=== PATIENT | male | born 1965 | race Caucasian/White ===

== ENCOUNTER 2024-10-10 12:15 | Observation (INO) | payer BC ==
[2024-10-10] MEDS ORDERED: Sodium Chloride 0.9% 1000 ML 1,000 ML ONE (12:50)
[2024-10-10] MEDS: Sodium Chloride 0.9% 1000 ML 1,000 ML IV STA (12:50)
[2024-10-10 12:53] LABS: Absolute Neutrophil Ct (ANC) 8.33 x10^3/uL (1.78-5.38); BASOPHIL % 0.2 % (0.2-1.2); Basophil (Absolute #) 0.02 x10^3/uL (0.01-0.08); Eosinophil % 0.2 % (0.8-7.0); Eosinophil (Absolute #) 0.02 x10^3/uL (0.04-0.54); Hemoglobin 14.9 g/dL (13.7-17.5); IMMATURE GRAN # 0.05 x10^3u/L (0.001-0.031); IMMATURE GRAN % 0.5 % (0.001-0.429); Lymphocyte (Absolute #) 1.45 x10^3/uL (1.32-3.57); Lymphocytes % 13.7 % (21.8-53.1); Mean Cell Volume 92.1 fL (79.0-92.2); Mean Corpuscular Hemoglobin 32.7 pg (25.7-32.2); Mean Corpuscular Hgb Concent. 35.5 g/dL (32.3-36.5); Mean Platelet Volume 11.2 fL (9.4-12.4); Monocyte (Absolute #) 0.72 x10^3/uL (0.30-0.82); Monocytes % 6.8 % (5.3-12.2); Neutrophil % 78.6 % (34.0-67.9); Platelet Count 282 x10^3/uL (163-337); Red Blood Count 4.56 x10^6/uL (4.63-6.08); Red Cell Distribution Width 12.5 % (11.6-14.4); White Blood Count 10.6 x10^3/uL (4.23-9.07)
[2024-10-10 12:59] LABS: ALBUMIN 4.9 g/dL (3.5-5.0); ANION GAP 20.4 MEQ/L (5-15); BILIRUBIN,TOTAL 1.4 mg/dL (0.2-1.3); Calcium 9.4 mg/dL (8.4-10.2); Creatinine 1 0.68 mg/dL (0.66-1.25); EST GLOMERULAR FILTRATION RATE 107.7 ML/MIN; Potassium 4.8 mmol/L (3.5-5.1); Total Protein 7.4 g/dL (6.3-8.2)
--- NOTE | 2024-10-10 13:13 | XRAY ---
Indication: Atrial fibrillation. Comparison: None Portable chest inflated and clear. Heart borderline enlarged. Bony thorax intact with osteopenia and mild degenerative changes. No acute findings.
[2024-10-10 13:17] LABS: MAGNESIUM 1.7 mg/dL (1.6-2.3)
[2024-10-10] MEDS ORDERED: Cardizem IV 50 MG/10 ML IV ONE (13:34)
[2024-10-10] MEDS: Cardizem IV 50 MG/10 ML IV ONE (13:37)
[2024-10-10] MEDS: CARDIZEM DRIP 100 MG/100 ML D5W 100 ML IV PRN (13:39)
--- NOTE | 2024-10-10 14:36 | ERPHSYRPT ---
- History of Present Illness Time Seen by Provider: 10/10/24 12:16 Historian: patient, family Exam Limitations: no limitations Patient Subjective Stated Complaint: PT. STATES, "A COUPLE OF WEEKS AGO I WAS HAVING PAIN IN MY DIAPHRAGM AND IT MOVED FROM SIDE TO SIDE. NOW THE PAIN HAS SETTLED INTO MY RT. LOWER QUADRANT. I VOMITED X1 AND HAVE HAD SOME LOOSER STOOLS TODAY." Triage Nursing Assessment: PT. AMBULATES TO ROOM WITHOUT DIFFICULTY, A&OX3, RESP. EVEN UNLABORED, NO EDEMA, ABLE TO MOVE ALL 4 EXT. Physician History: 58 years old male with history of hypertension, coronary artery disease with multiple stenting presented in the ER with complaints of upper abdominal pain for the last 3 weeks off and on and worsening for 1 week and now more on the right side with associated nausea and 1 episode of nonprojectile, nonbilious vomiting without hematemesis. Patient reports having loose stool but no lakeisha diarrhea hematochezia or melena. Pain is moderate intensity dull aching with no significant aggravating or relieving factors. Patient also reports having moments of fluttering sensations in the chest but no pain or shortness of breath. Patient is in A-fib RVR with heart rate in 130s on presentation with no previous history of atrial fibrillation. Reports feeling weak fatigued and dehydrated. Allergies/Adverse Reactions: No Known Drug Allergies Allergy (Verified 10/10/24 13:36) Home Medications: Aspirin EC 81 mg [Ecotrin 81 mg] 81 mg PO DAILY 10/10/24 [History] Atorvastatin Calcium 80 mg PO DAILY 10/10/24 [History] Carvedilol 3.125 mg [Coreg 3.125 MG] 3.125 mg PO BID 10/10/24 [History] Losartan Potassium [Cozaar] 25 mg PO DAILY 10/10/24 [History] Hx Tetanus, Diphtheria Vaccination/Date Given: Yes Hx Influenza Vaccination/Date Given: No Hx Pneumococcal Vaccination/Date Given: Yes Immunizations Up to Date: Yes Travel Risk - International Travel Have you traveled outside of the country in past 3 weeks: No - Emerging Infectious Disease Are you exhibiting symptoms associated with any current EIDs: No - Review of Systems Constitutional: Fatigue Eyes: No Symptoms Ears, Nose, & Throat: No Symptoms Respiratory: No Symptoms Cardiac: Palpitations Abdominal/Gastrointestinal: Abdominal Pain, Nausea, Vomiting Genitourinary Symptoms: No Symptoms Musculoskeletal: No Symptoms Skin: No Symptoms Neurological: No Symptoms Psychological: No Symptoms Hematologic/Lymphatic: No Symptoms Immunological/Allergic: No Symptoms - Past Medical History Pertinent Past Medical History: Yes Neurological History: No Pertinent History ENT History: No Pertinent History Cardiac History: Coronary Artery Disease, Hypertension, Myocardial Infarction ([place]) Respiratory History: No Pertinent History Endocrine Medical History: No Pertinent History Musculoskeletal History: No Pertinent History GI Medical History: No Pertinent History History: No Pertinent History Psycho-Social History: No Pertinent History Male Reproductive Disorders: No Pertinent History - Past Surgical History Past Surgical History: Yes Other Surgical History: HEART CATH IN 10 YEARS AGO WITH 4 STENTS (2 IN LAD AND 2 RACA) - Social History Smoking Status: Former smoker Exposure to second hand smoke: Yes Drug Use: none - Social Determinants of Health Will the patient participate in the screening: Declined to provide - Nursing Vital Signs Nursing Vital Signs: Initial Vital Signs Temperature 97.6 F 10/10/24 12:16 Pulse Rate 163 H 10/10/24 12:16 Respiratory Rate 21 10/10/24 12:16 Blood Pressure 165/125 10/10/24 12:16 O2 Sat by Pulse Oximetry 99 10/10/24 12:16 Pain Scale Pain Intensity 5 - Physical Exam General Appearance: no apparent distress, alert Eye Exam: PERRL/EOMI Ears, Nose, Throat Exam: normal ENT inspection Neck Exam: normal inspection, non-tender, supple, full range of motion Respiratory Exam: normal breath sounds, lungs clear Cardiovascular Exam: tachycardia, irregular Gastrointestinal/Abdomen Exam: soft, normal bowel sounds, tenderness (Right upper quadrant and flank) Back Exam: normal inspection, normal range of motion Extremity Exam: normal inspection, normal range of motion Neurologic Exam: alert, oriented x 3, cooperative, 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-XII nml as tested, sensation nml, No motor deficits Skin Exam: normal color SpO2 Interpretation: normal SpO2: 94 O2 Delivery: Room Air - Course EKG Interpreted by Me: RATE (130), A-fib, NORMAL AXIS, prolonged QT interval, Non-specific ST Changes Ordered Tests: Active Orders 24 hr Category Date Time Status EKG-ER Only STAT Care 10/10/24 12:45 Active IV Insertion STAT Care 10/10/24 12:45 Active NPO (ED) STAT Care 10/10/24 12:45 Active ABDOMEN AND PELVIS W/0 CONTRAS [CT] Stat Exams 10/10/24 12:46 Completed CHEST 1 VIEW (PORTABLE) Stat Exams 10/10/24 12:46 Completed CBC W DIFF Stat Lab 10/10/24 12:35 Completed CMP Stat Lab 10/10/24 12:35 Completed LIPASE Stat Lab 10/10/24 12:35 Completed Lactic Acid Stat Lab 10/10/24 12:45 Completed MAGNESIUM Stat Lab 10/10/24 12:35 Completed NT PRO BNPII Stat Lab 10/10/24 12:35 Completed TROPONIN Q4H Lab 10/10/24 12:35 Completed TROPONIN Q4H Lab 10/10/24 15:45 Received TROPONIN Q4H Lab 10/10/24 21:00 Ordered UA W/RFX UR CULTURE Stat Lab 10/10/24 12:46 Ordered Transfer Order Routine Transfer 10/10/24 Ordered Medication Summary Generic Name Dose Route Start Last Admin Trade Name Freq PRN Reason Stop Dose Admin Diltiazem HCl 100 mls @ 5 mls/hr 10/10/24 13:33 10/10/24 15:06 Cardizem Drip 100 Mg/100 Ml D5w IV 11/09/24 13:32 20 mg/hr .Q20H PRN 20 mls/hr HEART RATE/ A-FIB Titration Protocol 5 MG/HR Discontinued Medications Generic Name Dose Route Start Last Admin Trade Name Freq PRN Reason Stop Dose Admin Diltiazem HCl 15 mg 10/10/24 13:34 10/10/24 13:37 Diltiazem Hcl Iv 5 Mg/Ml Vial IV 10/10/24 13:35 15 mg STAT ONE Administration Diltiazem HCl Confirm 10/10/24 13:34 Diltiazem Hcl Iv 5 Mg/Ml Vial Administered 10/10/24 13:35 Dose 50 mg IV .STK-MED ONE Sodium Chloride 1,000 mls @ 999 mls/hr 10/10/24 12:45 10/10/24 14:07 Sodium Chloride 0.9% 1000 Ml IV 10/10/24 13:45 Infused .Q1H1M STA Infusion Sodium Chloride Confirm 10/10/24 12:50 Sodium Chloride 0.9% 1000 Ml Administered 10/10/24 12:51 Dose 1,000 mls @ ud .ROUTE .STK-MED ONE Lab/Rad Data: Laboratory Result Diagrams 10/10/24 12:35 10/10/24 12:35 Laboratory Results 10/10/24 10/10/24 10/10/24 Range/Units 12:45 12:35 12:35 WBC (4.23-9.07) x10^3/uL RBC (4.63-6.08) x10^6/uL Hgb (13.7-17.5) g/dL Hct (40.1-51.0) % MCV (79.0-92.2) fL MCH (25.7-32.2) pg MCHC (32.3-36.5) g/dL RDW (11.6-14.4) % Plt Count (163-337) x10^3/uL MPV (9.4-12.4) fL Gran % (34.0-67.9) % Immature Gran % (Auto) (0.001-0.429) % Nucleat RBC Rel Count (0.00-0.2) % Eos # (Auto) (0.04-0.54) x10^3/uL Immature Gran # (Auto) (0.001-0.031) x10^3u/L Absolute Lymphs (auto) (1.32-3.57) x10^3/uL Absolute Monos (auto) (0.30-0.82) x10^3/uL Absolute Nucleated RBC (0.00-0.012) x10^3u/L Lymphocytes % (21.8-53.1) % Monocytes % (5.3-12.2) % Eosinophils % (0.8-7.0) % Basophils % (0.2-1.2) % Absolute Granulocytes (1.78-5.38) x10^3/uL Basophils # (0.01-0.08) x10^3/uL Sodium 134 L (135-145) mmol/L Potassium 4.8 (3.5-5.1) mmol/L Chloride 98 (98-107) mmol/L Carbon Dioxide 20 L (22-30) mmol/L Anion Gap 20.4 H (5-15) MEQ/L BUN 12 (9-20) mg/dL Creatinine 0.68 (0.66-1.25) mg/dL Estimated GFR 107.7 ML/MIN Glucose 151 H (74-106) mg/dL Lactic Acid 1.8 (0.4-2.0) Calcium 9.4 (8.4-10.2) mg/dL Magnesium 1.7 (1.6-2.3) mg/dL Total Bilirubin 1.40 H (0.2-1.3) mg/dL AST 37 (17-59) U/L ALT 46 (0-50) U/L Alkaline Phosphatase 88 (38-126) U/L Troponin I < 0.012 (0.000-0.033) ng/mL NT-Pro-B Natriuret Pep 1450 (<300) pg/mL Serum Total Protein 7.4 (6.3-8.2) g/dL Albumin 4.9 (3.5-5.0) g/dL Lipase 55 (23-300) U/L 10/10/24 Range/Units 12:35 WBC 10.6 H (4.23-9.07) x10^3/uL RBC 4.56 L (4.63-6.08) x10^6/uL Hgb 14.9 (13.7-17.5) g/dL Hct 42.0 (40.1-51.0) % MCV 92.1 (79.0-92.2) fL MCH 32.7 H (25.7-32.2) pg MCHC 35.5 (32.3-36.5) g/dL RDW 12.5 (11.6-14.4) % Plt Count 282 (163-337) x10^3/uL MPV 11.2 (9.4-12.4) fL Gran % 78.6 H (34.0-67.9) % Immature Gran % (Auto) 0.5 H (0.001-0.429) % Nucleat RBC Rel Count 0.0 (0.00-0.2) % Eos # (Auto) 0.02 L (0.04-0.54) x10^3/uL Immature Gran # (Auto) 0.05 H (0.001-0.031) x10^3u/L Absolute Lymphs (auto) 1.45 (1.32-3.57) x10^3/uL Absolute Monos (auto) 0.72 (0.30-0.82) x10^3/uL Absolute Nucleated RBC 0.00 (0.00-0.012) x10^3u/L Lymphocytes % 13.7 L (21.8-53.1) % Monocytes % 6.8 (5.3-12.2) % Eosinophils % 0.2 L (0.8-7.0) % Basophils % 0.2 (0.2-1.2) % Absolute Granulocytes 8.33 H (1.78-5.38) x10^3/uL Basophils # 0.02 (0.01-0.08) x10^3/uL Sodium (135-145) mmol/L Potassium (3.5-5.1) mmol/L Chloride (98-107) mmol/L Carbon Dioxide (22-30) mmol/L Anion Gap (5-15) MEQ/L BUN (9-20) mg/dL Creatinine (0.66-1.25) mg/dL Estimated GFR ML/MIN Glucose (74-106) mg/dL Lactic Acid (0.4-2.0) Calcium (8.4-10.2) mg/dL Magnesium (1.6-2.3) mg/dL Total Bilirubin (0.2-1.3) mg/dL AST (17-59) U/L ALT (0-50) U/L Alkaline Phosphatase (38-126) U/L Troponin I (0.000-0.033) ng/mL NT-Pro-B Natriuret Pep (<300) pg/mL Serum Total Protein (6.3-8.2) g/dL Albumin (3.5-5.0) g/dL Lipase (23-300) U/L - Progress Progress: improved, re-examined Progress Note: 10/10/24 15:31 58 years old is evaluated in the ER for abdominal pain with nausea and loose stool. Patient was in A-fib RVR on presentation in the ER. No previous history of A- fib. He is given fluid bolus with no improvement in the heart rate and started on Cardizem IV bolus followed by drip. Has improvement in the heart rate in 80s but still in A-fib. Patient has new onset A-fib. Chest x-ray is negative for any acute cardiopulmonary findings interpreted by me followed by official read. White count of 10, chemistries fairly unremarkable except for some element of dehydration. No acute UTI. CT abdomen pelvis without contrast is negative for any acute intra-abdominal pelvic findings. I believe patient needs to be admitted for A-fib RVR and switching from IV to oral meds and anticoagulation. Discussed with Dr. Jacome, reviewed history, workup and agreed with admission. Shared the results of workup with patient and family and plan of admission which they understand and agree. Complexity of problems addressed: High acuity Complexity of data reviewed/analyzed: Extensive Risk of complication: Moderate to high risk Discussed with : Teresa Will see patient in: hospital (observation) Counseled pt/family regarding: lab results, diagnosis, rad results Medical Desision Making - Independent Historian Additional History obtained from: Spouse - Discussion of managment Care discussed with:: hospitalist Reviewed:: Test results Agreed on:: Treatment plan, place in obs Will see patient: in hospital - Diagnostic Testing Diagnostic test were ordered, analyzed, and reviewed by me: Yes Radiological Interpretation: Interpreted by me, Reviewed by me - Risk of complications The pt has a mod risk of morbidity or mortality based on: Need for prescription drug management The pt has a high risk of morbidity or mortality based on: Drug therapy requiring intensive monitoring for toxicity, Decision regarding hospitilization or escalation of hosp level of care - Departure Departure Disposition: Observation Clinical Impression: Atrial fibrillation with RVR, Abdominal pain Condition: Stable Critical Care Time: Yes Critical Care Time(excluding separately billable procedures): Critical 30-74 mins Referrals: DOCTOR,NO FAMILY [Primary Care Provider, UNKNOWN] - Follow up/PCP as directed
--- NOTE | 2024-10-10 14:51 | XRAY ---
Indication: Right abdomen pain. Multiple contiguous axial images obtained through the abdomen and pelvis without contrast. Comparison: None Lung bases demonstrates minimal bilateral dependent atelectasis. No infiltrate or effusion. Heart borderline enlarged. Noncontrasted stomach and bowel loops appear nonobstructed with normal appendix. Left upper kidney demonstrates cortical thinning/scarring. No free fluid/air. Remaining liver, gallbladder, pancreas, spleen, adrenal glands, kidneys, ureters, and bladder are unremarkable for noncontrast exam. Mild scattered aortoiliac calcifications without AAA. Osseous structures intact with minimal/mild degenerative changes throughout thoracolumbar spine and mild degenerative changes both hips. No ventral or inguinal hernias. Impression: Chronic findings including borderline cardiomegaly, left renal cortical thinning/scarring, arteriosclerotic disease, and chronic bony findings. No acute findings on this noncontrast exam.
--- NOTE | 2024-10-10 17:11 | PCM.HP ---
History of Present Illness - Chief Complaint Chief Complaint: A-fib RVR Date: 10/10/24 History of Present Illness: is a 58-year-old male with a history of hypertension and coronary artery disease with multiple stents presented to the emergency department with complaints of upper abdominal pain that has been intermittent over the past three weeks and worsening over the last week, now more localized to the right side. The pain is described as dull and aching, of moderate intensity, with no clear aggravating or relieving factors. He also reported associated nausea and one episode of non-projectile, non-bilious vomiting without hematemesis. Additionally, the patient noted having loose stools but denied lakeisha diarrhea, hematochezia, or melena. He mentioned experiencing intermittent fluttering sensations in the chest but denied chest pain or shortness of breath. On presentation, the patient was found to be in atrial fibrillation with rapid ventricular response (RVR), with a heart rate in the 130s and no prior history of atrial fibrillation. He reported feeling weak, fatigued, and dehydrated. Initial evaluation revealed a WBC count of 10.6, an anion gap of 20.4, and a total bilirubin of 1.40. Chest X-ray showed a borderline enlarged heart, while CT of the abdomen and pelvis did not reveal any acute findings. In the ER, the patient was given a 1-liter normal saline fluid bolus, and Cardizem was administered both as an IV push and infusion. He remained in atrial fibrillation with a heart rate of 110 but maintained stable blood pressure. The patient was subsequently admitted to an ICU bed for further monitoring and management. - Review of Systems Constitutional: No Fever, No Chills Eyes: No Symptoms Ears, Nose, & Throat: No Symptoms Respiratory: No Cough, No Short Of Breath Cardiac: Palpitations, No Chest Pain, No Edema, No Syncope Abdominal/Gastrointestinal: Abdominal Pain, No Nausea, No Vomiting, No Diarrhea Genitourinary Symptoms: No Dysuria Musculoskeletal: No Back Pain, No Neck Pain Skin: No Rash Neurological: No Dizziness, No Focal Weakness, No Sensory Changes Psychological: No Symptoms Endocrine: No Symptoms Hematologic/Lymphatic: No Symptoms Immunological/Allergic: No Symptoms Medications & Allergies Home Medications: Home Medication List Aspirin EC 81 mg [Ecotrin 81 mg] 81 mg PO DAILY 10/10/24 [History Confirmed 10/10/24] Atorvastatin Calcium 80 mg PO DAILY 10/10/24 [History Confirmed 10/10/24] Carvedilol 3.125 mg [Coreg 3.125 MG] 3.125 mg PO BID 10/10/24 [History Confirmed 10/10/24] Losartan Potassium [Cozaar] 25 mg PO DAILY 10/10/24 [History Confirmed 10/10/24] Allergies/Adverse Reactions: Allergies Allergy/AdvReac Type Severity Reaction Status Date / Time No Known Drug Allergies Allergy Verified 10/10/24 13:36 - Past Medical History Past Medical History: Yes Neurological History: No Pertinent History ENT History: No Pertinent History Cardiac History: Coronary Artery Disease, Hypertension, Myocardial Infarction (RI) Respiratory History: No Pertinent History Endocrine Medical History: No Pertinent History Musculoskelatal History: No Pertinent History GI Medical History: No Pertinent History History: No Pertinent History Pyscho-Social History: No Pertinent History Male Reproductive Disorders: No Pertinent History - Past Surgical History Past Surgical History: Yes Other Surgical History: HEART CATH IN 10 YEARS AGO WITH 4 STENTS (2 IN LAD AND 2 RACA) Significant Family History: no pertinent family hx - Social History Smoking Status: Former smoker Exposure to second hand smoke: Yes Alcohol: Daily Drug Use: none - Social Determinants of Health Will the patient participate in the screening: Declined to provide - Physical Exam Vital Signs: Vital Signs - 24 hr Temp Pulse Pulse Resp BP BP Pulse Ox 10/10/24 16:15 70 17 143/85 98 10/10/24 16:00 66 25 H 136/83 98 10/10/24 15:54 94 L 10/10/24 15:47 68 25 H 134/90 98 10/10/24 15:30 78 26 H 136/95 99 10/10/24 15:15 87 25 H 143/85 97 10/10/24 15:06 110 H 16 140/84 10/10/24 15:00 85 28 H 146/113 98 10/10/24 14:45 85 28 H 143/107 97 10/10/24 14:38 92 H 16 147/102 10/10/24 14:36 98 H 26 H 147/102 94 L 10/10/24 14:30 92 H 27 H 164/106 91 L 10/10/24 14:15 102 H 28 H 151/95 92 L 10/10/24 14:00 97 H 25 H 158/89 94 L 10/10/24 13:44 101 H 18 142/117 96 10/10/24 13:39 127 H 16 142/117 10/10/24 13:32 120 H 27 H 167/128 97 10/10/24 13:15 176/129 10/10/24 13:00 135 H 15 155/126 98 10/10/24 12:59 115 H 10/10/24 12:45 144 H 19 179/122 100 10/10/24 12:37 121 H 17 165/125 100 10/10/24 12:16 97.6 F 163 H 21 165/125 99 General Appearance: no apparent distress, alert Neurologic Exam: alert, oriented x 3, cooperative, normal mood/affect, nml cerebellar function, nml station & gait, sensation nml, No motor deficits Eye Exam: PERRL/EOMI, eyes nml inspection Ears, Nose, Throat Exam: normal ENT inspection, TMs normal, pharynx normal, moist mucous membranes Neck Exam: normal inspection, non-tender, supple, full range of motion Respiratory Exam: normal breath sounds, lungs clear, No respiratory distress Cardiovascular Exam: normal heart sounds, normal peripheral pulses, irregular Gastrointestinal/Abdomen Exam: soft, normal bowel sounds, No tenderness, No mass Back Exam: normal inspection, normal range of motion, No CVA tenderness, No vertebral tenderness Extremity Exam: normal inspection, normal range of motion, pelvis stable Skin Exam: normal color, warm, dry, No rash Lymphatic Exam: No adenopathy Results - Labs Lab/Micro Results: Lab Results-Last 24 Hours 10/10/24 10/10/24 10/10/24 Range/Units 12:35 12:35 12:35 WBC 10.6 H (4.23-9.07) x10^3/uL RBC 4.56 L (4.63-6.08) x10^6/uL Hgb 14.9 (13.7-17.5) g/dL Hct 42.0 (40.1-51.0) % MCV 92.1 (79.0-92.2) fL MCH 32.7 H (25.7-32.2) pg MCHC 35.5 (32.3-36.5) g/dL RDW 12.5 (11.6-14.4) % Plt Count 282 (163-337) x10^3/uL MPV 11.2 (9.4-12.4) fL Gran % 78.6 H (34.0-67.9) % Immature Gran % (Auto) 0.5 H (0.001-0.429) % Nucleat RBC Rel Count 0.0 (0.00-0.2) % Eos # (Auto) 0.02 L (0.04-0.54) x10^3/uL Immature Gran # (Auto) 0.05 H (0.001-0.031) x10^3u/L Absolute Lymphs (auto) 1.45 (1.32-3.57) x10^3/uL Absolute Monos (auto) 0.72 (0.30-0.82) x10^3/uL Absolute Nucleated RBC 0.00 (0.00-0.012) x10^3u/L Lymphocytes % 13.7 L (21.8-53.1) % Monocytes % 6.8 (5.3-12.2) % Eosinophils % 0.2 L (0.8-7.0) % Basophils % 0.2 (0.2-1.2) % Absolute Granulocytes 8.33 H (1.78-5.38) x10^3/uL Basophils # 0.02 (0.01-0.08) x10^3/uL Sodium 134 L (135-145) mmol/L Potassium 4.8 (3.5-5.1) mmol/L Chloride 98 (98-107) mmol/L Carbon Dioxide 20 L (22-30) mmol/L Anion Gap 20.4 H (5-15) MEQ/L BUN 12 (9-20) mg/dL Creatinine 0.68 (0.66-1.25) mg/dL Estimated GFR 107.7 ML/MIN Glucose 151 H (74-106) mg/dL Lactic Acid (0.4-2.0) Calcium 9.4 (8.4-10.2) mg/dL Magnesium 1.7 (1.6-2.3) mg/dL Total Bilirubin 1.40 H (0.2-1.3) mg/dL AST 37 (17-59) U/L ALT 46 (0-50) U/L Alkaline Phosphatase 88 (38-126) U/L Troponin I < 0.012 (0.000-0.033) ng/mL NT-Pro-B Natriuret Pep 1450 (<300) pg/mL Serum Total Protein 7.4 (6.3-8.2) g/dL Albumin 4.9 (3.5-5.0) g/dL Lipase 55 (23-300) U/L 10/10/24 10/10/24 Range/Units 12:45 15:45 WBC (4.23-9.07) x10^3/uL RBC (4.63-6.08) x10^6/uL Hgb (13.7-17.5) g/dL Hct (40.1-51.0) % MCV (79.0-92.2) fL MCH (25.7-32.2) pg MCHC (32.3-36.5) g/dL RDW (11.6-14.4) % Plt Count (163-337) x10^3/uL MPV (9.4-12.4) fL Gran % (34.0-67.9) % Immature Gran % (Auto) (0.001-0.429) % Nucleat RBC Rel Count (0.00-0.2) % Eos # (Auto) (0.04-0.54) x10^3/uL Immature Gran # (Auto) (0.001-0.031) x10^3u/L Absolute Lymphs (auto) (1.32-3.57) x10^3/uL Absolute Monos (auto) (0.30-0.82) x10^3/uL Absolute Nucleated RBC (0.00-0.012) x10^3u/L Lymphocytes % (21.8-53.1) % Monocytes % (5.3-12.2) % Eosinophils % (0.8-7.0) % Basophils % (0.2-1.2) % Absolute Granulocytes (1.78-5.38) x10^3/uL Basophils # (0.01-0.08) x10^3/uL Sodium (135-145) mmol/L Potassium (3.5-5.1) mmol/L Chloride (98-107) mmol/L Carbon Dioxide (22-30) mmol/L Anion Gap (5-15) MEQ/L BUN (9-20) mg/dL Creatinine (0.66-1.25) mg/dL Estimated GFR ML/MIN Glucose (74-106) mg/dL Lactic Acid 1.8 (0.4-2.0) Calcium (8.4-10.2) mg/dL Magnesium (1.6-2.3) mg/dL Total Bilirubin (0.2-1.3) mg/dL AST (17-59) U/L ALT (0-50) U/L Alkaline Phosphatase (38-126) U/L Troponin I < 0.012 (0.000-0.033) ng/mL NT-Pro-B Natriuret Pep (<300) pg/mL Serum Total Protein (6.3-8.2) g/dL Albumin (3.5-5.0) g/dL Lipase (23-300) U/L - Radiology Impressions Radiology Exams & Impressions: Radiology Procedures Category Date Time Status ABDOMEN AND PELVIS W/0 CONTRAS [CT] Stat Exams 10/10/24 12:46 Completed CHEST 1 VIEW (PORTABLE) Stat Exams 10/10/24 12:46 Completed Assessment/Plan (1) Atrial fibrillation with RVR Current Visit: Yes Status: Acute Assessment & Plan: - Cardizem IVP gave in ER- then cardizem gtt started - ICU tele - HR 70's - continued a-fib on admission - Started oral cardizem now and asked nurse to wean gtt and d/c in 2 hours - Mg+ < 2 so replaced - Keep mg+ > 2 and K+ > 4 - Echo in AM - Tele cardiology consult - 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- he would like us to discuss with in AM - Therapeutic Lovenox- will change to oral anticoagulation in AM - CXR negative for acute concern - TSH pending - CHADSVASC score 2 Code(s): I48.91 - UNSPECIFIED ATRIAL FIBRILLATION (2) Enlarged heart Current Visit: Yes Status: Acute Assessment & Plan: - Echo - tele Code(s): I51.7 - CARDIOMEGALY (3) Dehydration Current Visit: Yes Status: Acute Assessment & Plan: - IVF - IV fluid bolus gave in ER - Anion gap elevated Code(s): E86.0 - DEHYDRATION (4) Abdominal pain Current Visit: Yes Status: Resolved Assessment & Plan: - Pt reports resolved since admission - CT abd/pelvis negative for acute concern - Recent loose stool none today. - CBC, CMP reviewed Code(s): R10.9 - UNSPECIFIED ABDOMINAL PAIN (5) HTN (hypertension) Current Visit: Yes Status: Acute Assessment & Plan: - BP stable - Continue home meds Code(s): I10 - ESSENTIAL (PRIMARY) HYPERTENSION (6) CAD (coronary artery disease) Current Visit: Yes Status: Chronic Assessment & Plan: - HX of [place] and HTN - BP stable - Cardiology consult - Tele - Echo in AM Code(s): I25.10 - ATHSCL HEART DISEASE OF [place] CORONARY ARTERY W/O ANG PCTRS (7) Obesity (BMI 30.0-34.9) Current Visit: Yes Status: Acute Assessment & Plan: - Advised heart healthy diet and exercise control Code(s): E66.811 - OBESITY, CLASS 1 (8) Sleep apnea Current Visit: Yes Status: Chronic Assessment & Plan: - is bringing in pt's Cpap tonight to use. - Pt reports being compliant with CPAP at night. VTE: Lovenox Next of KIN: D/C plan: tomorrow Code status: Full Code(s): G47.30 - SLEEP APNEA, UNSPECIFIED Telemedicine Encounter - Telemedicine Encounter Telemedicine Encounter: "The entirety of this encounter was performed via Telemedicine" This visit was performed using real-time audio and video connection between my location and thepatients locationwith the assistance of a surrogateat the patients location. Written or verbal consent was obtained from the patient/guardian to perform this visit [facility] technology. Any patient questions regarding the telemedicine interaction were answered.
[2024-10-10] MEDS: Sodium Chloride 0.9% 1000 ML 1,000 ML IV SCH (18:29)
[2024-10-10] MEDS: Cardizem 30 MG PO SCH (18:30)
[2024-10-10] MEDS: MAG-OX 400 PO ONE (18:31)
[2024-10-10] MEDS: ENOXAPARIN SODIUM SQ SCH (18:31)
[2024-10-10 19:01] LABS: Appearance Clear (Clear); Bacteria None Seen /HPF (None Seen); Bilirubin Negative (Negative); Blood Negative (Negative); Epithelial Cells None Seen /HPF (None Seen); Glucose, Urine Negative (Negative); Hyaline Casts NONE SEEN /LPF (0-2); Ketones 15 (Negative); Leukocyte Esterase Negative (Negative); Nitrite Negative (Negative); Protein,Urine Dip Negative (Negative); RBC 0-2 /HPF (0-5); Urobilinogen 0.2 mg/dL (0.2); WBC 0-2 /HPF (0-5)
--- NOTE | 2024-10-10 19:30 | PCM.CONS ---
History of Present Illness - Date of Consult Consulting Media Monitor: BRADLY ARRIAGA MD Requesting Provider: Attending Provider: SWETA GARCIA MD Primary Care Provider: PCP: NO FAMILY DOCTOR - Consult Narrative Reason for Consult: afib w/ RVR HPI: 58 yo M w/ PMHx of HTN, CAD s/p PCI x4 stents (LAD, Dg, RCA x2) who presents with abdominal pain and found to be in afib w/ RVR. Patient started having abdominal pain and thought he was having appendicitis and presented for further evaluation wher he was found to be in afib w/ RVR into the 150-160s. He was admitted for further evaluation and management. In the ER, he was started on IV cardizem and rates are now better controlled in the 70-80s. He has no CP, SOB, palpitations or other cardiac symptoms. His abdominal pain for which he initially presented is now resolved (see HPI for further characterization of abdominal pain). In addition, he reports feeling fatigued/weak/dehydrated. He reports that he had one prior episode of self-resolving afib for 24 hours after stents were placed in 2014. Does not regularly check BP at home but says at his annual checkups it's usually in the 130s/80s. cc:: The requesting physician will be sent a copy of the consult. Review of Systems - Review of Systems All systems: as per HPI - Past Medical History Past Medical History: Yes Neurological History: No Pertinent History ENT History: No Pertinent History Cardiac History: Coronary Artery Disease, Hypertension, Myocardial Infarction ([place]) Respiratory History: No Pertinent History Endocrine Medical History: No Pertinent History Musculoskelatal History: No Pertinent History GI Medical History: No Pertinent History History: No Pertinent History Pyscho-Social History: No Pertinent History Male Reproductive Disorders: No Pertinent History - Past Surgical History Past Surgical History: Yes Other Surgical History: HEART CATH IN 10 YEARS AGO WITH 4 STENTS (2 IN LAD AND 2 RACA) Significant Family History: no pertinent family hx - Social History Smoking Status: Former smoker Exposure to second hand smoke: Yes Alcohol: Daily Drug Use: none - Social Determinants of Health Will the patient participate in the screening: Declined to provide Medications & Allergies Home Medications: Home Medication List Aspirin EC 81 mg [Ecotrin 81 mg] 81 mg PO DAILY 10/10/24 [History Confirmed 10/10/24] Atorvastatin Calcium 80 mg PO HS 10/10/24 [History Confirmed 10/10/24] C/Sourcherry/Celery/Grape Seed [Tart Mccullough Capsule] 1 cap PO QAM 10/10/24 [History Confirmed 10/10/24] Carvedilol 3.125 mg [Coreg 3.125 MG] 3.125 mg PO BID 10/10/24 [History Confirmed 10/10/24] Losartan Potassium [Cozaar] 25 mg PO DAILY 10/10/24 [History Confirmed 10/10/24] Melatonin 10 mg PO HS 10/10/24 [History Confirmed 10/10/24] Potassium Gluconate [Potassium] 99 mg PO BID 10/10/24 [History Confirmed 10/10/24] Allergies/Adverse Reactions: Allergies Allergy/AdvReac Type Severity Reaction Status Date / Time No Known Drug Allergies Allergy Verified 10/10/24 13:36 Exam - Vitals Vital Signs: Vital Signs - 24 hr Temp Pulse Pulse Resp BP BP Pulse Ox 10/10/24 18:05 62 28 H 125/71 10/10/24 17:29 74 23 126/83 10/10/24 16:15 70 17 143/85 98 10/10/24 16:00 66 25 H 136/83 98 10/10/24 15:54 94 L 10/10/24 15:47 68 25 H 134/90 98 10/10/24 15:30 78 26 H 136/95 99 10/10/24 15:15 87 25 H 143/85 97 10/10/24 15:06 110 H 16 140/84 10/10/24 15:00 85 28 H 146/113 98 10/10/24 14:45 85 28 H 143/107 97 10/10/24 14:38 92 H 16 147/102 10/10/24 14:36 98 H 26 H 147/102 94 L 10/10/24 14:30 92 H 27 H 164/106 91 L 10/10/24 14:15 102 H 28 H 151/95 92 L 10/10/24 14:00 97 H 25 H 158/89 94 L 10/10/24 13:44 101 H 18 142/117 96 10/10/24 13:39 127 H 16 142/117 10/10/24 13:32 120 H 27 H 167/128 97 10/10/24 13:15 176/129 10/10/24 13:00 135 H 15 155/126 98 10/10/24 12:59 115 H 10/10/24 12:45 144 H 19 179/122 100 10/10/24 12:37 121 H 17 165/125 100 10/10/24 12:16 97.6 F 163 H 21 165/125 99 General:: alert and oriented x 4 HEENT: EOMI Cardiovascular Exam: normal heart sounds, irregular Respiratory Exam: normal breath sounds SpO2: 98 Gastrointestinal/Abdomen Exam: soft Extremity Exam: normal inspection, other (Trace pretibial edema) Neurologic: retention representative II-XII grossly intact, 5/5 Motor and Sensory Upper and Lower Extremities Results Vital Signs: Vital Signs - 24 hr Temp Pulse Pulse Resp BP BP Pulse Ox 10/10/24 18:05 62 28 H 125/71 10/10/24 17:29 74 23 126/83 10/10/24 16:15 70 17 143/85 98 10/10/24 16:00 66 25 H 136/83 98 10/10/24 15:54 94 L 10/10/24 15:47 68 25 H 134/90 98 10/10/24 15:30 78 26 H 136/95 99 10/10/24 15:15 87 25 H 143/85 97 10/10/24 15:06 110 H 16 140/84 10/10/24 15:00 85 28 H 146/113 98 10/10/24 14:45 85 28 H 143/107 97 10/10/24 14:38 92 H 16 147/102 10/10/24 14:36 98 H 26 H 147/102 94 L 10/10/24 14:30 92 H 27 H 164/106 91 L 10/10/24 14:15 102 H 28 H 151/95 92 L 10/10/24 14:00 97 H 25 H 158/89 94 L 10/10/24 13:44 101 H 18 142/117 96 10/10/24 13:39 127 H 16 142/117 10/10/24 13:32 120 H 27 H 167/128 97 10/10/24 13:15 176/129 10/10/24 13:00 135 H 15 155/126 98 10/10/24 12:59 115 H 10/10/24 12:45 144 H 19 179/122 100 10/10/24 12:37 121 H 17 165/125 100 10/10/24 12:16 97.6 F 163 H 21 165/125 99 Pain Assessment - Last Documented Pain Intensity 5 Intake and Output: Intake & Output 10/08/24 10/09/24 10/10/24 10/11/24 11:59 11:59 11:59 11:59 Weight 95 kg LAB: I have reviewed the Labs in [facility]. Radiology Exams: Radiology Procedures Category Date Time Status ABDOMEN AND PELVIS W/0 CONTRAS [CT] Stat Exams 10/10/24 12:46 Completed CHEST 1 VIEW (PORTABLE) Stat Exams 10/10/24 12:46 Completed ECHO W/2D AND DOPPLER [US] Routine Exams 10/11/24 08:00 Ordered ECHO W/2D AND DOPPLER [US] Routine Exams 10/11/24 08:00 Stop Req - ECHO Echo: pending Assessment & Plan (1) Atrial fibrillation with RVR Current Visit: Yes Status: Acute Assessment & Plan: Now rate controlled. Asymptomatic. Echo is pending to evaluate for structural disease. TSH is pending. Recommend increasing coreg to 6.25mg BID. He is on therapeutic enoxaparin but could go ahead and start apixaban 5mg BID (CHADS2- vasc is 2 so meets criteria for AC). From a cardiac perspective, he can likely be discharged tomorrow once his rate control med needs are determined (presuming the remainder of his non-cardiac workup is unremarkable). Please arrange for outpatient cardiology follow up. Code(s): I48.91 - UNSPECIFIED ATRIAL FIBRILLATION (2) CAD (coronary artery disease) Current Visit: Yes Status: Chronic Assessment & Plan: Cont cardioprotective medical regimen. Code(s): I25.10 - ATHSCL HEART DISEASE OF [place] CORONARY ARTERY W/O ANG PCTRS - Encounter Encounter: "The entirety of this encounter was performed via Telemedicine using audio and visual "
[2024-10-10] MEDS ORDERED: MELATONIN PO ONE (21:47)
[2024-10-10] MEDS: MELATONIN PO SCH (21:52)
[2024-10-10] MEDS: Coreg PO SCH (21:52)
[2024-10-10] MEDS ORDERED: Coreg 3.125 MG PO SCH (22:00)
[2024-10-10] MEDS: NON-FORMULARY ITEM (Melatonin [Melatonin] 10 MG Tablet) PO SCH (22:16)
[2024-10-11 05:04] LABS: Hemoglobin 13.9 g/dL (13.7-17.5); Mean Cell Volume 92.4 fL (79.0-92.2); Mean Corpuscular Hemoglobin 32.1 pg (25.7-32.2); Mean Corpuscular Hgb Concent. 34.8 g/dL (32.3-36.5); Mean Platelet Volume 10.6 fL (9.4-12.4); Platelet Count 248 x10^3/uL (163-337); Red Blood Count 4.33 x10^6/uL (4.63-6.08); Red Cell Distribution Width 12.7 % (11.6-14.4); White Blood Count 11.2 x10^3/uL (4.23-9.07)
[2024-10-11 05:40] LABS: ALBUMIN 4.3 g/dL (3.5-5.0); ANION GAP 15.3 MEQ/L (5-15); BILIRUBIN,TOTAL 1.4 mg/dL (0.2-1.3); Calcium 8.9 mg/dL (8.4-10.2); Creatinine 1 0.7 mg/dL (0.66-1.25); EST GLOMERULAR FILTRATION RATE 106.8 ML/MIN; Potassium 4.2 mmol/L (3.5-5.1); Total Protein 6.8 g/dL (6.3-8.2)
[2024-10-11] MEDS ORDERED: ENOXAPARIN SODIUM SQ ONE (06:20)
[2024-10-11 08:22] VITALS: TEMP 98.2
[2024-10-11] MEDS: ECOTRIN 81 MG PO SCH (08:25)
[2024-10-11] MEDS: Cozaar 50 MG PO SCH (08:26)
[2024-10-11] MEDS ORDERED: NON-FORMULARY ITEM (Atorvastatin Calcium [Atorvastatin Calcium] 80 MG Tablet) PO SCH (10:00)
[2024-10-11] MEDS ORDERED: NON-FORMULARY ITEM (Losartan Potassium [Cozaar] 25 MG Tablet) PO SCH (10:00)
[2024-10-11] MEDS: COREG 12.5 MG PO ONE (10:10)
[2024-10-11] MEDS: Coreg PO ONE (10:10)
--- NOTE | 2024-10-11 11:54 | XRAY ---
Indication: Pain. Elevated bilirubin. Two-dimensional gallbladder sonogram performed. Comparison: None Visualized gallbladder normally distended without gallstones, wall thickening, or pericholecystic fluid. Common bile duct measures 3.7 mm. No intrahepatic biliary distention. Mild diffuse fatty echogenic liver without focal solid/cystic mass or hepatomegaly. Remaining visualized pancreas and right kidney sonographically unremarkable. Right kidney measures 12.3 x 6.2 x 4.9 cm. Impression: Fatty liver. Otherwise negative gallbladder sonogram.
[2024-10-11] MEDS: ELIQUIS 2.5 MG TABLET PO SCH (12:34)
[2024-10-11] MEDS: ZOCOR 20MG PO SCH (12:34)
--- NOTE | 2024-10-11 13:34 | PCM.DS ---
Discharge Summary Date of Admission: 10/10/24 16:43 Date of Discharge: 10/11/24 Admitting Physician: SWETA GARCIA MD Consults: Consults on Case 10/10/24 17:08 Consult Cardiology ROUTINE Primary Care Provider: NO FAMILY DOCTOR Allergies Allergies No Known Drug Allergies Allergy (Verified 10/10/24 13:36) Hospital Summary - Hospital Course Hospital Course: 10/10/24 is a 58-year-old male with a history of hypertension and coronary artery disease with multiple stents presented to the emergency department with complaints of upper abdominal pain that has been intermittent over the past three weeks and worsening over the last week, now more localized to the right side. The pain is described as dull and aching, of moderate intensity, with no clear aggravating or relieving factors. He also reported associated nausea and one episode of non-projectile, non-bilious vomiting without hematemesis. Additionally, the patient noted having loose stools but denied lakeisha diarrhea, hematochezia, or melena. He mentioned experiencing intermittent fluttering sensations in the chest but denied chest pain or shortness of breath. On presentation, the patient was found to be in atrial fibrillation with rapid ventricular response (RVR), with a heart rate in the 130s and no prior history of atrial fibrillation. He reported feeling weak, fatigued, and dehydrated. Initial evaluation revealed a WBC count of 10.6, an anion gap of 20.4, and a total bilirubin of 1.40. Chest X-ray showed a borderline enlarged heart, while CT of the abdomen and pelvis did not reveal any acute findings. In the ER, the patient was given a 1-liter normal saline fluid bolus, and Cardizem was administered both as an IV push and infusion. He remained in atrial fibrillation with a heart rate of 110 but maintained stable blood pressure. The patient was subsequently admitted to an ICU bed for further monitoring and management. 10/11/24 Pt resting in bed. This pt again in a-fib RVR with HR in low 100's. Asked nurse- ELIAZAR Hickey to call cardiology and discuss meds and let provider know about HR. Coreg again increased. Pt also had a run of V-tach this AM and again cardiology made aware by RN. Echo results pending. Bili 1.40, US gallbladder ordered and no concerning findings seen. Pt denies any abd .pain today. Pt is wanting to go home today and awaiting cardiology recs. HR below 100 this afternoon with continued controlled a-fib. Pt denies CP, SOB, abd. pain, N/V/D. - Vitals & Intake/Output Vital Signs: Vital Signs Temperature 98.2 F 10/11/24 08:21 Pulse Rate 93 H 10/11/24 12:00 Respiratory Rate 29 H 10/11/24 12:00 Blood Pressure 109/81 10/11/24 12:00 O2 Sat by Pulse Oximetry 98 10/11/24 12:00 Intake & Output: Intake & Output 10/09/24 10/10/24 10/11/24 10/12/24 11:59 11:59 11:59 11:59 Intake Total 1238 Output Total 4625 Balance -3387 Weight 94.8 kg - Lab Result Diagrams: 10/11/24 04:59 10/11/24 04:59 Lab Results-Last 24 Hrs: Lab Results-Last 24 Hours 10/10/24 10/10/24 10/10/24 Range/Units 15:45 18:45 21:25 WBC (4.23-9.07) x10^3/uL RBC (4.63-6.08) x10^6/uL Hgb (13.7-17.5) g/dL Hct (40.1-51.0) % MCV (79.0-92.2) fL MCH (25.7-32.2) pg MCHC (32.3-36.5) g/dL RDW (11.6-14.4) % Plt Count (163-337) x10^3/uL MPV (9.4-12.4) fL Sodium (135-145) mmol/L Potassium (3.5-5.1) mmol/L Chloride (98-107) mmol/L Carbon Dioxide (22-30) mmol/L Anion Gap (5-15) MEQ/L BUN (9-20) mg/dL Creatinine (0.66-1.25) mg/dL Estimated GFR ML/MIN Glucose (74-106) mg/dL Calcium (8.4-10.2) mg/dL Magnesium (1.6-2.3) mg/dL Total Bilirubin (0.2-1.3) mg/dL AST (17-59) U/L ALT (0-50) U/L Alkaline Phosphatase (38-126) U/L Troponin I < 0.012 < 0.012 (0.000-0.033) ng/mL Serum Total Protein (6.3-8.2) g/dL Albumin (3.5-5.0) g/dL TSH 3rd Generation (0.470-4.680) mIU/L Urine Color Yellow (Yellow) Urine Appearance Clear (Clear) Urine pH 6.0 (4.6-8.0) Ur Specific [place] 1.010 (1.005-1.030) Urine Protein Negative (Negative) Urine Glucose (UA) Negative (Negative) mg/dL Urine Ketones 15 A (Negative) Urine Blood Negative (Negative) Urine Nitrite Negative (Negative) Urine Bilirubin Negative (Negative) Urine Urobilinogen 0.2 (0.2) mg/dL Ur Leukocyte Esterase Negative (Negative) U Hyaline Cast (Auto) NONE SEEN (0-2) /LPF Urine Microscopic RBC 0-2 (0-5) /HPF Urine Microscopic WBC 0-2 (0-5) /HPF Ur Epithelial Cells None Seen (None Seen) /HPF Urine Bacteria None Seen (None Seen) /HPF Urine Culture Reflexed NO (NO) 10/11/24 10/11/24 10/11/24 Range/Units 04:59 04:59 04:59 WBC 11.2 H (4.23-9.07) x10^3/uL RBC 4.33 L (4.63-6.08) x10^6/uL Hgb 13.9 (13.7-17.5) g/dL Hct 40.0 L (40.1-51.0) % MCV 92.4 H (79.0-92.2) fL MCH 32.1 (25.7-32.2) pg MCHC 34.8 (32.3-36.5) g/dL RDW 12.7 (11.6-14.4) % Plt Count 248 (163-337) x10^3/uL MPV 10.6 (9.4-12.4) fL Sodium 138 (135-145) mmol/L Potassium 4.2 (3.5-5.1) mmol/L Chloride 105 (98-107) mmol/L Carbon Dioxide 22 (22-30) mmol/L Anion Gap 15.3 H (5-15) MEQ/L BUN 10 (9-20) mg/dL Creatinine 0.70 (0.66-1.25) mg/dL Estimated GFR 106.8 ML/MIN Glucose 151 H (74-106) mg/dL Calcium 8.9 (8.4-10.2) mg/dL Magnesium (1.6-2.3) mg/dL Total Bilirubin 1.40 H (0.2-1.3) mg/dL AST 33 (17-59) U/L ALT 37 (0-50) U/L Alkaline Phosphatase 75 (38-126) U/L Troponin I (0.000-0.033) ng/mL Serum Total Protein 6.8 (6.3-8.2) g/dL Albumin 4.3 (3.5-5.0) g/dL TSH 3rd Generation 0.895 (0.470-4.680) mIU/L Urine Color (Yellow) Urine Appearance (Clear) Urine pH (4.6-8.0) Ur Specific [place] (1.005-1.030) Urine Protein (Negative) Urine Glucose (UA) (Negative) mg/dL Urine Ketones (Negative) Urine Blood (Negative) Urine Nitrite (Negative) Urine Bilirubin (Negative) Urine Urobilinogen (0.2) mg/dL Ur Leukocyte Esterase (Negative) U Hyaline Cast (Auto) (0-2) /LPF Urine Microscopic RBC (0-5) /HPF Urine Microscopic WBC (0-5) /HPF Ur Epithelial Cells (None Seen) /HPF Urine Bacteria (None Seen) /HPF Urine Culture Reflexed (NO) 10/11/24 Range/Units 04:59 WBC (4.23-9.07) x10^3/uL RBC (4.63-6.08) x10^6/uL Hgb (13.7-17.5) g/dL Hct (40.1-51.0) % MCV (79.0-92.2) fL MCH (25.7-32.2) pg MCHC (32.3-36.5) g/dL RDW (11.6-14.4) % Plt Count (163-337) x10^3/uL MPV (9.4-12.4) fL Sodium (135-145) mmol/L Potassium (3.5-5.1) mmol/L Chloride (98-107) mmol/L Carbon Dioxide (22-30) mmol/L Anion Gap (5-15) MEQ/L BUN (9-20) mg/dL Creatinine (0.66-1.25) mg/dL Estimated GFR ML/MIN Glucose (74-106) mg/dL Calcium (8.4-10.2) mg/dL Magnesium 2.0 (1.6-2.3) mg/dL Total Bilirubin (0.2-1.3) mg/dL AST (17-59) U/L ALT (0-50) U/L Alkaline Phosphatase (38-126) U/L Troponin I (0.000-0.033) ng/mL Serum Total Protein (6.3-8.2) g/dL Albumin (3.5-5.0) g/dL TSH 3rd Generation (0.470-4.680) mIU/L Urine Color (Yellow) Urine Appearance (Clear) Urine pH (4.6-8.0) Ur Specific [place] (1.005-1.030) Urine Protein (Negative) Urine Glucose (UA) (Negative) mg/dL Urine Ketones (Negative) Urine Blood (Negative) Urine Nitrite (Negative) Urine Bilirubin (Negative) Urine Urobilinogen (0.2) mg/dL Ur Leukocyte Esterase (Negative) U Hyaline Cast (Auto) (0-2) /LPF Urine Microscopic RBC (0-5) /HPF Urine Microscopic WBC (0-5) /HPF Ur Epithelial Cells (None Seen) /HPF Urine Bacteria (None Seen) /HPF Urine Culture Reflexed (NO) - Radiology Exams Ordered Rad Exams-Entire Visit: Radiology Procedures Category Date Time Status ABDOMEN AND PELVIS W/0 CONTRAS [CT] Stat Exams 10/10/24 12:46 Completed CHEST 1 VIEW (PORTABLE) Stat Exams 10/10/24 12:46 Completed ECHO W/2D AND DOPPLER [US] Routine Exams 10/11/24 08:00 Taken GALLBLADDER [US] Routine Exams 10/11/24 07:19 Completed - Procedures and Test Procedures and Tests throughout Hospitalization: Therapy Orders & Screens 10/10/24 17:16 Respiratory Therapy Consult ONCE Comment: Reason For Exam: 10/10/24 19:44 Oxygen Nasal Cannula 2 lpm Comment: Diagnosis: A-fib RVR 10/10/24 19:45 BiPap/CPAP ROUTINE Comment: Diagnosis: A-fib RVR 10/10/24 20:16 ST Screen per Nursing Assess ONCE Comment: Protocol Order Physician Instructions: Greater than [address] Admission Screening Reason For Exam: Triggered on Admission Diagnosis: A-fib RVR CVA/Dysphagia/Aphasia: No Cognitive Deficits: No Dehydration/Nutrition Deficit: Yes Reflux: No Oral-Motor Difficulties: No Pneumonia: No Custodial Resident: No Total Points: 5 Discharge Exam General Appearance: no apparent distress, alert Neurologic Exam: alert, oriented x 3, cooperative, normal mood/affect, nml cerebellar function, sensation nml, No motor deficits Eye Exam: PERRL, EOMI, eyes nml inspection Ears, Nose, Throat Exam: normal ENT inspection, pharynx normal, moist mucous membranes Neck Exam: normal inspection, non-tender, supple, full range of motion Respiratory Exam: normal breath sounds, lungs clear, No respiratory distress Cardiovascular Exam: normal heart sounds, irregular Gastrointestinal/Abdomen Exam: soft, No tenderness, No mass Male Genitalia Exam: deferred Rectal Exam: deferred Back Exam: normal inspection, normal range of motion, No CVA tenderness, No vertebral tenderness Extremity Exam: normal inspection, normal range of motion Skin Exam: normal color, warm, dry Final Diagnosis/Problem List - Final Discharge Diagnosis/Problem (1) Atrial fibrillation with RVR Current Visit: Yes Status: Acute Code(s): I48.91 - UNSPECIFIED ATRIAL FIBRILLATION (2) Enlarged heart Current Visit: Yes Status: Acute Code(s): I51.7 - CARDIOMEGALY (3) Dehydration Current Visit: Yes Status: Acute Code(s): E86.0 - DEHYDRATION (4) Abdominal pain Current Visit: Yes Status: Resolved Code(s): R10.9 - UNSPECIFIED ABDOMINAL PAIN (5) HTN (hypertension) Current Visit: Yes Status: Acute Code(s): I10 - ESSENTIAL (PRIMARY) HYPERTENSION (6) CAD (coronary artery disease) Current Visit: Yes Status: Chronic Code(s): I25.10 - ATHSCL HEART DISEASE OF [place] CORONARY ARTERY W/O ANG PCTRS (7) Obesity (BMI 30.0-34.9) Current Visit: Yes Status: Acute Code(s): E66.811 - OBESITY, CLASS 1 (8) Sleep apnea Current Visit: Yes Status: Chronic Assessment & Plan: (1) Atrial fibrillation with RVR Current Visit: Yes Status: Acute Assessment & Plan: - Cardizem IVP gave in ER- then cardizem gtt started - ICU tele - HR 70's - continued a-fib on admission - Started oral cardizem now and asked nurse to wean gtt and d/c in 2 hours - Mg+ < 2 so replaced - Keep mg+ > 2 and K+ > 4 - Echo in AM - Tele cardiology consult - 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 - cardilogy aware and strip faxed to cards. - Eliquis started- RX sent in. - Cards ok with d/c today - wants pt to get sooner appointment with OP cards for new onset a-fib RVR- also sent in RX for cardizem 120mg XR daily per cards recommendation. Code(s): I48.91 - UNSPECIFIED ATRIAL FIBRILLATION (2) Enlarged heart Current Visit: Yes Status: Acute Assessment & Plan: - Echo- results pending - tele Code(s): I51.7 - CARDIOMEGALY (3) Dehydration Current Visit: Yes Status: Acute Assessment & Plan: - IVF - IV fluid bolus gave in ER - Anion gap elevated 10/11 -IVF stopped Code(s): E86.0 - DEHYDRATION (4) Abdominal pain Current Visit: Yes Status: Resolved Assessment & Plan: - Pt reports resolved since admission - CT abd/pelvis negative for acute concern - Recent loose stool none today. - CBC, CMP reviewed 10/11 - US gallbladder negative - Denies ABd pain - WBC 11.2 - CBC, CMP reviewed Code(s): R10.9 - UNSPECIFIED ABDOMINAL PAIN (5) HTN (hypertension) Current Visit: Yes Status: Acute Assessment & Plan: - BP stable - Continue home meds 10/11 - HTN this am and Coreg was increased by cardiology- BP now stable and controlled Code(s): I10 - ESSENTIAL (PRIMARY) HYPERTENSION (6) CAD (coronary artery disease) Current Visit: Yes Status: Chronic Assessment & Plan: - HX of CT and HTN - BP stable - Cardiology consult - Tele - Echo in AM 10/11 - Echo results pending Code(s): I25.10 - ATHSCL HEART DISEASE OF [place] CORONARY ARTERY W/O ANG PCTRS (7) Obesity (BMI 30.0-34.9) Current Visit: Yes Status: Acute Assessment & Plan: - Advised heart healthy diet and exercise control Code(s): E66.811 - OBESITY, CLASS 1 (8) Sleep apnea Current Visit: Yes Status: Chronic Assessment & Plan: - is bringing in pt's Cpap tonight to use. - Pt reports being compliant with CPAP at night. Code(s): G47.30 - SLEEP APNEA, UNSPECIFIED - Discharge Discharge Date: 10/11/24 Disposition: Home, Self-Care Condition: Stable Prescriptions: New Carvedilol 12.5 mg [Coreg 12.5 mg] 25 mg PO BID 30 Days #60 tablet Apixaban [Eliquis 2.5 mg Tablet] 5 mg PO BID 30 Days #60 tablet Continue Aspirin EC 81 mg [Ecotrin 81 mg] 81 mg PO DAILY Carvedilol 3.125 mg [Coreg 3.125 MG] 3.125 mg PO BID Losartan Potassium [Cozaar] 25 mg PO DAILY Atorvastatin Calcium 80 mg PO HS C/Sourcherry/Celery/Grape Seed [Tart [place] Capsule] 1 cap PO QAM Potassium Gluconate [Potassium] 99 mg PO BID Melatonin 10 mg PO HS Additional Instructions: Please call cardiology Monday and explain that we suggest he get in for an appointment as soon as possible for new onset A-fib RVR eval. Follow up with: DEJON RODRIGUEZ MD [NON-STAFF PHY W/O PRIVILEGES, CARDIAC ELECTROPHYSIOLOGY] - 02/17/25 1:00 pm Referral Note: Office will call with a sooner appointment as soon as possible. Please be sure to bring insurance cards with you to this visit.
[2024-10-11] MEDS ORDERED: MAG-OX 400 PO ONE (17:06)
[2024-10-11 18:30] VITALS: BP 143/84; PULSE 88; RESP 28; O2SAT 98
[2024-10-11] MEDS ORDERED: ENOXAPARIN SODIUM SQ SCH (19:00)
[2024-10-11] MEDS ORDERED: COREG 12.5 MG PO SCH (22:00)
== END 2024-10-11 19:17 | disposition home or self-care (01) ==
LOC: ED 12:15 → ICU 16:43
PROVIDERS: ADMIT Internal Medicine; ATTEND Internal Medicine
DX: I48.20 Chronic atrial fibrillation, unspecified (principal); I10 Essential (primary) hypertension; I25.10 Atherosclerotic heart disease of native coronary artery without angina pectoris; R10.9 Unspecified abdominal pain; I51.7 Cardiomegaly; E86.0 Dehydration; E66.811 Obesity, class 1; G47.30 Sleep apnea, unspecified; Z79.899 Other long term (current) drug therapy
CPT/HCPCS: 36415; 71045; 74176; 76705; 80053; 81001; 83605; 83690; 83735; 83880; 84443; 84484; 85025; 85027; 93005; 93041; 93268; 93306; 96374; 96376; 99291; G0378; Q3014; 99285; J1650; A9270-GY